=== PATIENT | female | born 1960 | race Caucasian/White ===

== ENCOUNTER 2023-04-16 10:56 | Outpatient (CLI) | payer BC, SELFPAY | END 2023-04-16 10:57 | disposition home or self-care (01) | LOC: KYNREF 10:59 | PROVIDERS: PCP Nurse Practitioner Family; Visit Provider Nurse Practitioner Family | DX: R30.0 Dysuria (principal) | CPT/HCPCS: 81015; 87086; 87186 ==

== ENCOUNTER 2024-01-04 12:23 | Outpatient (CLI) | payer BC, SELFPAY | END 2024-01-04 12:24 | disposition home or self-care (01) | PROVIDERS: PCP Nurse Practitioner Family; Visit Provider Nurse Practitioner Family | DX: N30.00 Acute cystitis without hematuria (principal) | CPT/HCPCS: 87086 ==

== ENCOUNTER 2024-02-11 10:22 | Outpatient (CLI) | payer BC, SELFPAY ==
--- NOTE | 2024-02-11 10:45 | CRLHL7_ITS ---
For Patients: As a result of the Century Cures Act, medical imaging exams and procedure reports are released immediately into your electronic medical record. You may view this report before your referring provider. If you have questions, please contact your health care provider. CLINICAL HISTORY: Pelvic pain TECHNIQUE: 2D hernández scale ultrasound. In addition color Doppler and spectral Doppler analysis was performed of the pelvis using a transabdominal and transvaginal approach. FINDINGS: The myometrium is heterogeneous. No defined fibroid. Uterus measures 6.2 x 3.9 x 4.9 cm. The endometrial lining measures 3.3 millimeters. The right ovary measures 2.1 x 1.2 x 1.4 cm in size and the left ovary measures 2.3 x 1.4 x 1.2 cm. The ovaries demonstrate normal arterial and venous blood flow on color Doppler and spectral Doppler analysis. There are no suspicious fluid collections within the cul-de-sac. IMPRESSION: Normal ovaries. No torsion, excess pelvic fluid or adnexal mass. No uterine fibroid. Dictated by Jerry Westbrook MD @ 02/11/2024 10:25:18 PM (Electronically Signed)
== END 2024-02-11 10:23 | disposition home or self-care (01) ==
PROVIDERS: PCP Nurse Practitioner Family; Visit Provider Nurse Practitioner Family
DX: R10.2 Pelvic and perineal pain (principal); Z80.41 Family history of malignant neoplasm of ovary; Z80.49 Family history of malignant neoplasm of other genital organs
CPT/HCPCS: 76830; 76856; 93976

== ENCOUNTER 2024-02-24 06:24 | Outpatient (CLI) | payer BC, SELFPAY ==
--- NOTE | 2024-02-24 08:25 | W.ANESCHARGE ---
Anesthesia Charges Start Date/Time Anesthesia Start Date: 02/24/24 Anesthesia Start Time: 07:25 Stop Date/Time Anesthesia Stop Date: 02/24/24 Anesthesia Stop Time: 08:22
--- NOTE | 2024-02-24 09:24 | W.ANESCHARGE ---
Anesthesia Charges Start Date/Time Anesthesia Start Date: 02/24/24 Anesthesia Start Time: 07:25 Stop Date/Time Anesthesia Stop Date: 02/24/24 Anesthesia Stop Time: 08:22
== END 2024-02-24 06:25 | disposition home or self-care (01) ==
LOC: OP CLINIC 06:24
PROVIDERS: PCP Nurse Practitioner Family; Visit Provider Surgery
DX: K44.9 Diaphragmatic hernia without obstruction or gangrene (principal); Z12.11 Encounter for screening for malignant neoplasm of colon
CPT/HCPCS: 00813; 43239; 45385; 88305; 88341; 88342; J2704; J3010

== ENCOUNTER 2024-03-03 09:19 | Outpatient (CLI) | payer BC, SELFPAY ==
--- OUTSIDE RECORDS SUMMARY | 2024-03-05 11:30 | XMS_ITS | Referral Summary ---
Author Organization [place] Address [address] [place] [address]. [place] [address] Care Team Providers Care Rail Detector Car Operator Name Role Phone Trudy Carrera NP Primary Care Provider Александр Hudson GC Unavailable [phone] Suzanne Kevin GC Unavailable Encounters Date Type [...] Description 08/12/2024 2:15 PM CDT Virtual Visit [facility] [address] [place] [address] Rosa Wilks MD [facility] [address] [place], [place] [phone] Suzanne Kevin GC [address] [place], [place] [phone] Insurance [facility] Care Teams Rail Detector Car Operator Relationship Specialty Start Date End Date Trudy Carrera NP [address] [address] PCP - General 12/07/22 Александр Hudson GC [address] [place] [address] Genetic Counselor Genetics, Clinical 03/15/23 Suzanne Kevin GC [address] [place] [address] Genetic Counselor Genetic Counselor, MS 02/21/24
--- OUTSIDE RECORDS SUMMARY | 2024-03-05 11:30 | XMS_ITS | Clinical Summary ---
Author Organization [place] Address [address] [place] [address]. [place] [address] Care Team Providers Care Vehicle Delivery Worker Name Role Phone Trudy Carrera NP Primary Care Provider Александр Hudson GC Unavailable [phone] Suzanne Kevin GC Unavailable Encounters Date Type [...] Description 08/12/2024 2:15 PM CDT Virtual Visit [facility] [address] [place] [address] [facility] [address] [place] [address] Suzanne Kevin GC [address] [place], [place] [phone] Health Maintenance Due Date Last Done Comments [...] patient's age to complete this topic Insurance [facility] Care Teams Vehicle Delivery Worker Relationship Specialty Start Date End Date Trudy Carrera NP [address] [address] PCP - General 12/07/22 Александр Hudson GC [address] [place] [address] Genetic Counselor Genetics, Clinical 03/15/23 Suzanne Kevin GC [address] [place] [address] Genetic Counselor Genetic Counselor, MS 02/21/24
--- OUTSIDE RECORDS SUMMARY | 2024-03-05 11:30 | XMS_ITS | Encounter Summary ---
Author Organization [place] Address [address] [place] [address]. [place] [address] Care Team Providers Care Recreation Therapy Aide Name Role Phone Trudy Carrera NP Primary Care Provider Александр Hudson GC Unavailable [phone] Suzanne Kevin GC Unavailable Encounter Details Date Type Department Care Team (Late Contact Info) Description 07/24/2023 MyC Medical Advice [facility] Care [address] [place] [address] [facility] Social History Tobacco Use Types Packs/Day Years [...] Upcoming Encounters Date Type Department Care Team ([facility] Contact Info) Description 08/12/2024 2:15 PM CDT Virtual Visit [facility] [address] [place] [address] [facility] [address] [place] [address] Suzanne Kevin GC [address] [place] [address] documented as of this encounter Visit Diagnoses Not on filedocumented in this encounter Care Teams Recreation Therapy Aide Relationship Specialty Start Date End Date Trudy Carrera NP [address] [address] PCP - General 12/07/22 Александр Hudson GC [address] [place] [address] Genetic Counselor Genetics, Clinical 03/15/23 Suzanne Kevin GC [address] [place] [address] Genetic Counselor Genetic Counselor, [place] 02/21/24 documented as of this encounter
--- OUTSIDE RECORDS SUMMARY | 2024-03-05 11:30 | XMS_ITS | Encounter Summary ---
Author Organization [place] Address [address] [place] [address]. [place] [address] Care Team Providers Care Anode Builder Name Role Phone Trudy Carrera NP Primary Care Provider HudsonАлександр GC Unavailable [phone] Dorita Suzanne GC Unavailable Reason for Referral * Consultation (Routine) - Pending Review Specialty Diagnoses / Procedures Referred By Soco ge Referred To Contact Medical Oncology Diagnoses Family history of malignant neoplasm of ovary Rosa Wilks MD [facility] [address] [place] [address] Phone: tel: fax: Referral ID Status Reason Start Date Expiration Date V isits Requested Visits Authorized [id number] Pending Review 02/21/2024 02/20/2025 1 1 Question Answer My Clinical Question Is: Family history of malignant neoplasm of ovary If you have additional clinical questions which require a provider discussion, please call [phone]. Ask for the Chemo only medicine physician. Reason for Referral: Risk Management/Genetic Counseling Scheduling Instructions: [facility] will call you to coordinate your care as prescribed by the provider. If you don? t hear from a advertising representative within 2 business days, please call Additional Information: clinic called, about pt wanted to rescheduled, previous referral in, referred by Rosa Wilks Comments clinic called, about pt wanted to rescheduled, Family history of malignant neoplasm of ovary previous referral in, referred by Rosa Wilks [facility] will call you to coordinate your care as prescribed by the provider. If you don? t hear from a advertising representative within 2 business days, please call [...] Upcoming Encounters Date Type Department Care Team ([facility] Contact Info) Description 08/12/2024 2:15 PM CDT Virtual Visit [facility] [address] [place] [address] Rosa Wilks MD [facility] [address] [place] [address] [place] [address] [place] [address] Scheduled Referrals Name Type Priority Associated Diagnoses Orde r Schedule Adult Oncology/Hematology Lobster Catcher Referral Referral Routine Family history of malignant neoplasm of ovary Expected: 02/21/2024 (Approximate), Expires: 02/20/2025 documented as of this encounter Visit Diagnoses Diagnosis Family history of malignant neoplasm of ovary- Primary documented in this encounter Care Teams Anode Builder Relationship Specialty Start Date End Date Trudy Carrera NP [address] [address] PCP - General 12/07/22 Александр Hudson GC [address] [facility] [place] [address] Genetic Counselor Genetics, Clinical 03/15/23 Suzanne Kevin GC [address] [facility] [place] [address] Genetic Counselor Genetic Counselor, [place] 02/21/24 documented as of this encounter
== END 2024-03-03 09:20 | disposition home or self-care (01) ==
LOC: NFLDREF 03-05 11:28
PROVIDERS: PCP Nurse Practitioner Family; Referring Provider Nurse Practitioner Family; Visit Provider Nurse Practitioner Family
DX: C20 Malignant neoplasm of rectum (principal)
CPT/HCPCS: 82378

== ENCOUNTER 2024-03-05 07:01 | Outpatient (CLI) | payer BC, SELFPAY ==
--- OUTSIDE RECORDS SUMMARY | 2024-03-05 07:03 | XMS_ITS | Encounter Summary ---
Author Organization [place] Address [address] [place] [address]. [place] [address] Care Team Providers Care Shoe Stamper Name Role Phone Trudy Carrera NP Primary Care Provider HudsonАлександр GC Unavailable [phone] Dorita Suzanne GC Unavailable Reason for Referral * Consultation (Routine) - Pending Review Specialty Diagnoses / Procedures Referred By Soco ge Referred To Contact Medical Oncology Diagnoses Family history of malignant neoplasm of ovary Rosa Wilks MD [facility] [address] [place] [address] Phone: tel: fax: Referral ID Status Reason Start Date Expiration Date V isits Requested Visits Authorized [id number] Pending Review 02/21/2024 02/20/2025 1 1 Question Answer My Clinical Question Is: Family history of malignant neoplasm of ovary If you have additional clinical questions which require a provider discussion, please call [phone]. Ask for the Chemo only medicine physician. Reason for Referral: Risk Management/Genetic Counseling Scheduling Instructions: [facility] will call you to coordinate your care as prescribed by the provider. If you don? t hear from a retail account representative within 2 business days, please call Additional Information: clinic called, about pt wanted to rescheduled, previous referral in, referred by Rosa Wilks Comments clinic called, about pt wanted to rescheduled, Family history of malignant neoplasm of ovary previous referral in, referred by Rosa Wilks [facility] will call you to coordinate your care as prescribed by the provider. If you don? t hear from a retail account representative within 2 business days, please call Encounter Details Date Type Department Care Team (Late st Contact Info) Description 02/21/2024 Transcribe Orders GENERIC EXTERNAL DATA DEPARTMENT Provider, Generic External Data Family history of malignant neoplasm of ovary (Primary Dx) Social History Tobacco Use Types Packs/Day Years Used Date Smoking Tobacco: Never Assessed Adolescent Education Answer Date Record ed Getting School Help Needed Not on file 02/02 Comments Unknown Sex and Gender Information Value Date Recorded Sex Assigned at Not on file Legal Sex Female 3:01 PM CDT Gender Identity Not on file Sexual Orientation Not on file documented as of this encounter Plan of Treatment Upcoming Encounters Date Type Department Care Team ([facility] Contact Info) Description 08/12/2024 2:15 PM CDT Virtual Visit [facility] [address] [place] [address] Rosa Wilks MD [facility] [address] [place] [address] [place] [address] [place] [address] Scheduled Referrals Name Type Priority Associated Diagnoses Orde r Schedule Adult Oncology/Hematology Public Policy Coordinator Referral Referral Routine Family history of malignant neoplasm of ovary Expected: 02/21/2024 (Approximate), Expires: 02/20/2025 documented as of this encounter Visit Diagnoses Diagnosis Family history of malignant neoplasm of ovary- Primary documented in this encounter Care Teams Shoe Stamper Relationship Specialty Start Date End Date Trudy Carrera NP [address] [address] PCP - General 12/07/22 Александр Hudson GC [address] [place] [address] Genetic Counselor Genetics, Clinical 03/15/23 Suzanne Kevin GC [address] [place] [address] Genetic Counselor Genetic Counselor, [place] 02/21/24 documented as of this encounter
--- OUTSIDE RECORDS SUMMARY | 2024-03-05 07:03 | XMS_ITS | Encounter Summary ---
Author Organization [place] Address [address] [place] [address]. [place] [address] Care Team Providers Care Stripper Shovel Operator Name Role Phone Trudy Carrera NP Primary Care Provider Александр Hudson GC Unavailable [phone] Suzanne Kevin GC Unavailable Encounter Details Date Type Department Care Team (Late Contact Info) Description 07/24/2023 MyC Medical Advice [facility] [address] [place] [address] [facility] Social History Tobacco Use Types Packs/Day Years [...] Upcoming Encounters Date Type Department Care Team ([facility] Contact Info) Description 08/12/2024 2:15 PM CDT Virtual Visit [facility] [address] [place] [address] Rosa Wilks [facility] [address] [place] [address] Suzanne Kevin GC [address] [place] [address] documented as of this encounter Visit Diagnoses Not on filedocumented in this encounter Care Teams Stripper Shovel Operator Relationship Specialty Start Date End Date Trudy Carrera NP [address] [address] PCP - General 12/07/22 Александр Hudson GC [address] [place] [address] Genetic Counselor Genetics, Clinical 03/15/23 Suzanne Kevin GC [address] [place] [address] Genetic Counselor Genetic Counselor, [place] 02/21/24 documented as of this encounter
--- OUTSIDE RECORDS SUMMARY | 2024-03-05 07:03 | XMS_ITS | Clinical Summary ---
Author Organization [facility] Address [address] [place] [address]. [place] [address] Care Team Providers Care Real Estate Accountant Name Role Phone Trudy Carrera NP Primary Care Provider Александр Hudson GC Unavailable [phone] Suzanne Kevin GC Unavailable Encounters Date Type Department Care Team Description 02/21/2024 Transcribe Orders GENERIC EXTERNAL DATA DEPARTMENT Provider, Generic External Data Family history of malignant neoplasm of ovary (Primary Dx) from Last 3 Months Social History Tobacco Use Types Packs/Day Years Used Date Smoking Tobacco: Never Assessed Adolescent Education Answer Date Record ed Getting School Help Needed Not on file 02/02 Comments Unknown Sex and Gender Information Value Date Recorded Sex Assigned at Not on file Legal Sex Female 3:01 PM CDT Gender Identity Not on file Sexual Orientation Not on file Plan of Treatment Upcoming Encounters Date Type Department Care Team (Late st Contact Info) Description 08/12/2024 2:15 PM CDT Virtual Visit [facility] [address] [place] [address] [facility] [address] [place] [address] Suzanne Kevin GC [address] [place], [place] [id number] Health Maintenance Due Date Last Done Comments ADVANCE CARE PLANNING 1962 ANNUAL REVIEW OF HM ORDERS 1962 CT COLONOGRAPHY 1962 FIT 1962 FLEX SIG 1962 GLUCOSE 1962 MAMMO SCREENING 1962 YEARLY PREVENTIVE VISIT 1962 sDNA (Cologuard) 1962 COLONOSCOPY 02/10/1972 COLORECTAL CANCER SCREENING 02/10/1972 HIV SCREENING 1977 HEPATITIS C SCREENING 02/10/1980 PAP 1983 LIPID 2002 PHQ-2 (once per calendar year) 2023 COVID-19 Vaccine (2023- season) 2024 03/25/2023, 05/10/2021, 09/22/2020, Additional history exists DTAP/TDAP/TD IMMUNIZATION (2 - Td or Tdap) 06/06/2030 06/06/2020, 03/27/2006 RSV VACCINE (1 - 1-dose 75+ series) 2037 ZOSTER IMMUNIZATION Completed 08/31/2021, INFLUENZA VACCINE Completed 02/18/2024, , 06/06/2020, Additional history exists HPV IMMUNIZATION Aged Out No longer e ligible based on patient's age to complete this topic MENINGITIS IMMUNIZATION Aged Out No l onger eligible based on patient's age to complete this topic Pneumococcal Vaccine: Pediatrics (0 to 5 Years) and At-Risk Patients (6 to 64 Years) Aged Out No longer eligible based on patient's age to complete this topic RSV MONOCLONAL ANTIBODY Aged Out No l onger eligible based on patient's age to complete this topic Insurance [facility] Care Teams Real Estate Accountant Relationship Specialty Start Date End Date Trduy Carrera NP [address] [address] PCP - General 12/07/22 Александр Hudson GC [address] [place] [address] Genetic Counselor Genetics, Clinical 03/15/23 Suzanne Kevin GC [address] [place] [address] Genetic Counselor Genetic Counselor, MS 02/21/24
--- OUTSIDE RECORDS SUMMARY | 2024-03-05 07:03 | XMS_ITS | Referral Summary ---
Author Organization [place] Address [address] [place] [address]. [place] [address] Care Team Providers Care Orthopedic Specialist Name Role Phone Trudy Carrera NP Primary Care Provider Александр Hudson GC Unavailable [phone] Suzanne Kevin GC Unavailable Encounters Date Type [...] Description 08/12/2024 2:15 PM CDT Virtual Visit [facility] [address] [place] [address] Rosa Wilks MD [facility] [address] [place], [place] [phone] Suzanne Kevin GC [address] [place], [place] [phone] Insurance [facility] Care Teams Orthopedic Specialist Relationship Specialty Start Date End Date Trudy Carrera NP [address] [address] PCP - General 12/07/22 Александр Hudson GC [address] [place] [address] Genetic Counselor Genetics, Clinical 03/15/23 Suzanne Kevin GC [address] [place] [address] Genetic Counselor Genetic Counselor, MS 02/21/24
--- NOTE | 2024-03-05 07:15 | CRLHL7_ITS ---
For Patients: As a result of the Century Cures Act, medical imaging exams and procedure reports are released immediately into your electronic medical record. You may view this report before your referring provider. If you have questions, please contact your health care provider. INDICATION: Rectal cancer reportedly from snared polyp approximately 8 centimeters from the anal verge COMPARISON: None. TECHNIQUE: Mulitplanar, mutliparametric MR imaging of the rectum without and with intravenous contrast. Contrast: 20 cc of Dotarem FINDINGS: Evaluation limited by presence of stool and motion artifact. 1. TUMOR LOCATION AND CHARACTERISTICS: Not identified 2. EXTRAMURAL DEPTH OF INVASION AND MR T-CATEGORY: Tumor not identified. No definite areas of extramural invasion identified. 3. RELATIONSHIP OF TUMOR TO MESORECTAL FASCIA (MRF): Tumor not identified. 4. EXTRAMURAL VENOUS INVASION (EMVI): None. 5. MESORECTAL LYMPH NODES AND TUMOUR DEPOSITS: -Suspicious mesorectal lymph nodes/tumor deposits: None 6. EXTRAMESORECTAL LYMPH NODES: None 7. OTHER FINDINGS: Sigmoid diverticulosis without diverticulitis. Heterogeneous appearance of the uterus with normal endometrial thickness. Subcentimeter intramural fibroids in the uterus. Note that the abdominal contents are largely excluded from the field of view. IMPRESSION: Due to poor prep and motion artifact, tumor was not identified. However, there are no areas of ramon extramural invasion within these limitations, though evaluation for more subtle extramural evaluation is limited. No suspicious mesorectal lymph nodes are identified. Dictated by Nguyen Holden MD @ 03/11/2024 9:18:57 AM (Electronically Signed)
--- NOTE | 2024-03-05 08:00 | CRLHL7_ITS ---
For Patients: As a result of the Century Cures Act, medical imaging exams and procedure reports are released immediately into your electronic medical record. You may view this report before your referring provider. If you have questions, please contact your health care provider. Indication: NEW DIAGNOSIS RECTAL CANCER Technique: CT Chest/Abd/Pelvis W/ 101CC ISOVUE 370 Please note that all CT scans at this facility use dose modulation, iterative reconstruction, and/or weight-based dosing when appropriate to reduce radiation dose to as low as reasonably achievable. Comparison: Pelvic ultrasound 02/11/2024, pelvic MRI 03/05/2024 Findings: In the chest, no suspicious thyroid nodule is present. No enlarged mediastinal, hilar or axillary lymph nodes. The lungs are clear. No infiltrate, edema, effusion or no pneumothorax. No pulmonary nodule. Emphysema noted. Mild scarring within the anterior right lung. Discogenic spurring lower thoracic spine. No fracture. In the abdomen, there is a simple water attenuation cyst within the liver measuring 8.9 millimeters. The spleen is within normal limits. Normal adrenal glands. The kidneys are unremarkable. 5 millimeter simple cyst right kidney. The pancreas is within normal limits. The gallbladder is incompletely distended. No biliary obstruction. Vascular calcifications are present. No aneurysm. There are a few scattered subcentimeter left upper quadrant mesenteric and upper retroperitoneal lymph nodes. In the pelvis, the bladder is normal. Uterus and adnexa unremarkable. Sigmoid diverticulosis. No diverticulitis. No bowel obstruction, free air, free fluid or abscess. The appendix is normal. No pelvic or inguinal adenopathy. Grade 1 degenerative spondylolisthesis of L4 on L5. Impression: A few scattered subcentimeter upper retroperitoneal and left upper quadrant mesenteric lymph nodes which are likely normal. No perirectal adenopathy. Sigmoid diverticulosis. No diverticulitis. No suspicious liver lesion. No pulmonary nodule. Please note that all CT scans at this facility use dose modulation, iterative reconstruction, and/or weight-based dosing when appropriate to reduce radiation dose to as low as reasonably achievable. Dictated by Jerry Westbrook MD @ 03/05/2024 10:12:54 AM (Electronically Signed)
[2024-03-05 08:39] LABS: Creatinine* 0.8 mg/dL (0.5-1.5); Estimated Glomerular Filt Rate 83 ml/min
== END 2024-03-05 07:02 | disposition home or self-care (01) ==
LOC: MRI 07:02
PROVIDERS: PCP Nurse Practitioner Family; Visit Provider Colon & Rectal Surgery
DX: C20 Malignant neoplasm of rectum (principal)
CPT/HCPCS: 36415; 71260; 72197; 74177; 82565; A9575; Q9967

== ENCOUNTER 2024-03-16 08:52 | Outpatient (CLI) | payer BC, SELFPAY ==
--- OUTSIDE RECORDS SUMMARY | 2024-03-16 09:02 | XMS_ITS | Clinical Summary ---
Author Organization [facility] Address [address] [place] [address]. [place] [address] Care Team Providers Care Crossing Tender Name Role Phone Trudy Carrera NP Primary Care Provider HudsonАлександр GC Unavailable [phone] Suzanne Kevin GC Unavailable Allergies Active Allergy Reactions Criticality Noted Date Comments Lanolin 11/26/2022 Lisinopril Cough High 11/26/2022 Medications losartan (COZAAR) 100 MG tablet 02/28/2024 Activ e Encounters Date Type Department Care Team Description 03/11/2024 9:00 AM CDT - 03/11/2024 9:[address] [facility] [address] [phone] Luann Pizarro MD flexible Sigmoidoscopy 03/11/2024 7:54 AM CDT - 03/11/2024 9:50 AM CDT Hospital Encounter [facility] [address] [phone] Luann Pizarro MD Discharge Disposition: Home or Self Care 02/21/2024 Transcribe Orders GENERIC EXTERNAL DATA DEPARTMENT Provider, Generic External Data Family history of malignant neoplasm of ovary (Primary Dx) from Last 3 Months Family History Medical History Relation Comments Lung Cancer Father Ovarian Cancer Mother Uterine Cancer Sister Relation Status Comments Father Mother Sister Social History Tobacco Use Types Packs/Day Years Used Date Smoking Tobacco: Former Cigarettes Smokeless Tobacco: Never Tobacco Cessation:Counseling Given: Not Answered Alcohol Use Standard Drinks/Week Comments Yes 0 (1 standard drink = 0.6 oz pur e alcohol) 4 servings per week Adolescent Education Answer Date Record ed Getting School Help Needed Not on file 02/02 Comments Unknown Sex and Gender Information Value Date Recorded Sex Assigned at Not on file Legal Sex Female 3:01 PM CDT Gender Identity Not on file Sexual Orientation Not on file Last Filed Vital Signs Vital Sign Reading Time Taken Comments Blood Pressure 122/61 03/11/2024 9:15 AM CDT Pulse 77 03/11/2024 9:15 AM CDT Temperature - - Respiratory Rate 16 03/11/2024 9:15 AM CDT Oxygen Saturation 96% 03/11/2024 9:15 AM CDT Inhaled Oxygen Concentration - - Weight 88 kg (194 lb) 03/11/2024 8:43 AM CDT Height 162.6 cm (5' 4) 03/11/2024 8:43 AM CDT Body Mass Index 33.3 03/11/2024 8:43 AM CDT Plan of Treatment Upcoming Encounters Date Type Department Care Team (Latest Contact Info) Description 04/01/2024 7:30 AM REBAR BENDER Hospital Encounter [facility] PeriOp Services [address] [place] [phone] Luann Pizarro MD COLON RECTAL SURGERY [address] [place] [address] 04/01/2024 7:30 AM REBAR BENDER - 04/01/2024 10:40 AM REBAR BENDER Surgery [facility] PeriOp Services [address] [place] [address] Luann Pizarro MD COLON RECTAL SURGERY [address] [address] Transanal endoscopic microsurgery for rectal cancer scar 08/12/2024 2:15 PM CDT Virtual Visit [facility] [address] [place] [phone] Rosa Wilks MD [facility] [address] [place] [address] Suzanne Kevin, GC [address] [place] [address] Scheduled Procedures Name Priority Associated Diagnoses Date/Ti me MICROSURGERY, ENDOSCOPIC, AN AL APPROACH Rectal cancer (H) 04/01/2024 7:30 AM REBAR BENDER Health Maintenance Due Date Last Done Comments ADVANCE CARE PLANNING 1960 ANNUAL REVIEW OF HM ORDERS 1960 CT COLONOGRAPHY 1962 FIT 1960 GLUCOSE 1960 MAMMO SCREENING 1960 YEARLY PREVENTIVE VISIT 1962 sDNA (Cologuard) 1962 COLONOSCOPY 02/10/1972 HIV SCREENING 1977 HEPATITIS C SCREENING 02/10/1980 PAP 1983 LIPID 2002 LUNG CANCER SCREENING 02/10/2012 PHQ-2 (once per calendar year) 2023 COVID-19 Vaccine ( season) 2024 03/25/2023, 05/10/2021, 09/22/2020, Additional history exists COLORECTAL CANCER SCREENING 03/11/2029 FLEX SIG 03/11/2029 03/11/2024 DTAP/TDAP/TD IMMUNIZATION (2 - Td or Tdap) [...] on patient's age to complete this topic Goals Goal Patient Goal Type Associated Problems Recent Progress Patient-Stated? Author MYC ECC SURG ENROLL Care Plan MyC ECC SURG ENROLL No Abbie Herrera Procedures Procedure Name Priority Date/Time Associated Diagnosis Comments SURGICAL PATHOLOGY EXAM Routine 03/11/2024 9:06 AM CDT FLEX SIGMOIDOSCOPY W INJ/TATTOOING 03/11/2024 8:53 AM CDT Rectal cancer (H) Special Needs Req 30 min FLEX SIGMOIDOSCOPY W BIOPSY 03/11/2024 8:53 AM CDT Rectal cancer (H) Special Needs Req 30 min FLEXIBLE SIGMOIDOSCOPY Routine 03/11/2024 8:51 AM CDT from Last 3 Months Results * Surgical Pathology Exam (03/11/2024 9:06 AM CDT) Case Report Surgical Pathology Report ? Case: [id number] ? Authorizing Provider: ??Luann Pizarro MD ?Collected: ? 03/11/2024 09:06 AM ? Ordering Location: ? [facility] ?Received: ?03/11/2024 10:29 AM ? [facility] ? Pathologist: ? Real Guevara MD ? Specimen: ?Rectum, rectal ulcer biopsies (previous polypectomy site) ? 03/13/2024 10:03 AM [facility] Addendum This addendum is included to report findings of additional immunohistochemical stains: -Immunohistochemical stains for cytokeratin AE1/AE3 demonstrate no atypical infiltrative epithelioid cells. -All controls stain appropriately. -There is no change in diagnosis 03/13/2024 10:03 AM [facility] Addendum electronically signed by Real Guevara MD on 03/13/2024 at 10:03 AM Final Diagnosis A(1). Colon, rectum, ulcerated region/previous polypectomy site, biopsies: -Colonic mucosa with submucosal scarring and acute and chronic inflammation. -Negative for dysplasia or malignancy. 03/13/2024 10:03 AM [facility] Clinical Information Procedure: flexible Sigmoidoscopy SIGMOIDOSCOPY, FLEXIBLE, WITH TATTOOING Pre-op Diagnosis: Rectal cancer (H) [C20] Post-op Diagnosis: C20 - Rectal cancer (H) [ICD-10-CM] 03/13/2024 10:03 AM [facility] Gross Description A(1). Rectum, rectal ulcer biopsies (previous polypectomy site): The specimen is received in formalin, labeled with the patient's name, medical record number and other identifying information and designated ? rectal ulcer biopsy? . It consists of a single muniz soft tissue fragment measuring 0.2 cm. Entirely submitted in one cassette. (SHUBHAM Gamboa)03/11/2024 10:36 AM 03/13/2024 10:03 AM [facility] Microscopic Description Microscopic examination was performed. 03/13/2024 10:03 AM [facility] Performing Labs The technical component of this testing was completed at [facility]. Stain controls for all stains resulted within this report have been reviewed and show appropriate reactivity. 03/13/2024 10:03 AM CDT LABORATORY Case Images 03/13/2024 10:03 AM CDT LABORATORY Biopsy RECTUM PART / Unknown 03/11/2024 9:06 AM CDT 03/11/2024 10:29 AM CDT us Luann Pizarro MD LAB - BEAKER AP Edited Res ult - Final LABORATORY [facility] [address] [facility]1st floor, no room number) [place] [address], [facility] [address] 1st floor, [address] [place] [address], [facility] [phone] * FLEXIBLE SIGMOIDOSCOPY (03/11/2024 8:51 AM CDT) [facility] [address] ??[address] Patient Name: Pastora Bacon ?Procedure Date: 03/11/2024 8:51 AM ? Date of : 1960 ?Admit Type: Outpatient Age: 64 ? Room: 1 ? Note Status: Finalized ?Attending MD: LUANN PIZARRO MD, Total Sedation Time: 10 minutes of continuous bedside 1:1. Instrument Name: Rekha PCF [id number] P Colon Flex Procedure: ?Flexible Sigmoidoscopy Indications: ?High risk colon cancer surveillance: Personal ?history of rectal cancer Providers: ?LUANN PIZARRO MD, Tammy Schulz RN Referring MD: ? Medicines: ?Fentanyl 100 micrograms IV, Midazolam 2 mg IV Complications: ?No immediate complications. Procedure: ?Pre-Anesthesia Assessment: ?- Prior to the procedure, a History and Physical ?was performed, and patient medications and ?allergies were reviewed. The patient is competent. ?The risks and benefits of the procedure and the ?sedation options and risks were discussed with the ?patient. All questions were answered and informed ?consent was obtained. Patient identification and ?proposed procedure were verified by the physician ?and the nurse in the endoscopy suite. Mental Status ?Examination: alert and oriented. Airway ?Examination: normal oropharyngeal airway and neck ?mobility. Respiratory Examination: clear to ?auscultation. CV Examination: normal. Prophylactic ?Antibiotics: The patient does not require ?prophylactic antibiotics. Prior Anticoagulants: The ?patient has taken no anticoagulant or antiplatelet ?agents. ASA Grade Assessment: II - A patient with ?mild systemic disease. After reviewing the risks ?and benefits, the patient was deemed in ?satisfactory condition to undergo the procedure. ?The anesthesia plan was to use moderate sedation / ?analgesia (conscious sedation). Immediately prior ?to administration of medications, the patient was ?re-assessed for adequacy to receive sedatives. The ?heart rate, respiratory rate, oxygen saturations, ?blood pressure, adequacy of pulmonary ventilation, ?and response to care were monitored throughout the ?procedure. The physical status of the patient was ?re-assessed after the procedure. ?After obtaining informed consent, the scope was ?passed under direct vision. The Colonoscope was ?introduced through the anus and advanced to 30 cm ?from the anal verge. The flexible sigmoidoscopy was ?accomplished with ease. The patient tolerated the ?procedure well. The quality of the bowel ?preparation was good. ? Findings: ? The perianal and digital rectal examinations were normal. Pertinent ? negatives include normal sphincter tone and no palpable rectal lesions. ? Nonbleeding ulcerated mucosa with no stigmata of recent bleeding were ? present in the mid rectum. Biopsies were taken with a cold forceps for ? histology. Estimated blood loss was minimal. Area was tattooed with an ? injection of 0.3 mL of Spot (carbon black). Estimated blood loss was ? minimal. ? The exam was otherwise without abnormality. ? Impression: ? - Mucosal ulceration likely piror polypectomy with ?cancer. This is at 8cm from then anal verge on the ?right lateral. Biopsied. Tattooed. ?- The examination was otherwise normal. Recommendation: ? - Await pathology results. Consider surgry to ?remove this area. ? Procedure Code(s): ? --- Professional --- ? 59351, Sigmoidoscopy, flexible; with biopsy, single or multiple ? 92594, Sigmoidoscopy, flexible; with directed submucosal injection(s), ? any substance Diagnosis Code(s): ? --- Professional --- ? Z85.048, Personal history of other malignant neoplasm of rectum, ? rectosigmoid junction, and anus ? K63.3, Ulcer of intestine CPT copyright 2021 [employer]. All rights reserved. The codes documented in this report are preliminary and upon rug setter axminster review may be revised to meet current compliance requirements. ____ LUANN PIZARRO MD 03/11/2024 9:17:27 AM I was physically present for the entire viewing portion of the exam. LUANN PIZARRO MD Number of Addenda: 0 Note Initiated On: 03/11/2024 8:51 AM Total Procedure Duration: 0 hours 8 minutes 20 seconds Scope In: 9:00:18 AM Scope Out: 9:08:38 AM RADIOLOGY RESULTS 03/11/2024 8:51 AM CDT us Luann Pizarro MD PROCEDURES Final Resu lt RADIOLOGY RESULTS from Last 3 Months Additional Health Concerns Active Problems Noted Date Diagnosed Date MyC ECC SURG ENROLL 03/12/2024 Insurance [facility] Care Teams Crossing Tender Relationship Specialty Start Date End Date Trudy Carrera NP [address] [address] PCP - General 12/07/22 Александр Hudson GC [address] [place] [address] Genetic Counselor Genetics, Clinical 03/15/23 Suzanne Kevin GC [address] [place] [address] Genetic Counselor Genetic Counselor, [place] 02/21/24
--- OUTSIDE RECORDS SUMMARY | 2024-03-16 09:02 | XMS_ITS | Referral Summary ---
Author Organization [facility] Address [address] [facility] [place] [address] Care Team Providers Care Radiologic Technologist Name Role Phone Trudy Carrera NP Primary Care Provider HudsonАлександр GC Unavailable [phone] Suzanne Kevin GC Unavailable Encounters Date Type Department Care Team Description 03/11/2024 9:00 AM CDT - 03/11/2024 9:30 AM CDT Surgery [facility] [address] [phone] Luann Pizarro MD flexible Sigmoidoscopy 03/11/2024 7:54 AM CDT - 03/11/2024 9:50 AM CDT Hospital Encounter [facility] [address] [phone] Luann Pizarro MD Discharge Disposition: Home or Self Care 02/21/2024 Transcribe Orders GENERIC EXTERNAL DATA DEPARTMENT Provider, Generic External Data Family history of malignant neoplasm of ovary (Primary Dx) from Last 3 Months Allergies Active Allergy Reactions Criticality Noted Date Comments Lanolin 11/26/2022 Lisinopril Cough High 11/26/2022 Medications losartan (COZAAR) 100 MG tablet 02/28/2024 Activ e Social History Tobacco Use Types Packs/Day Years [...] (Latest Contact Info) Description 04/01/2024 7:30 AM ROOFING APPRENTICE Hospital Encounter [facility] PeriOp Services [address] [place] [phone] Luann Pizarro MD COLON RECTAL SURGERY [address] [place] [address] 04/01/2024 7:30 AM ROOFING APPRENTICE - 04/01/2024 10:40 AM ROOFING APPRENTICE Surgery [facility] PeriOp Services [address] [place] [address] Luann Pizarro MD COLON RECTAL SURGERY [address] [address] Transanal endoscopic microsurgery for rectal cancer scar 08/12/2024 2:15 PM CDT Virtual Visit [facility] [address] [place] [address] Rosa Wilks MD [facility] [address] [place] [address] Suzanne Kevin, [address] [place] [address] Scheduled Procedures Name Priority Associated Diagnoses Date/Ti me MICROSURGERY, ENDOSCOPIC, AN AL APPROACH Rectal cancer (H) 04/01/2024 7:30 AM ROOFING APPRENTICE Goals Goal Patient Goal Type Associated Problems [...] Case Report Surgical Pathology Report ? Case: [id number] ? Authorizing Provider: ??Luann Pizarro MD ?Collected: ? 03/11/2024 09:06 AM ? [facility] ?Received: ?03/11/2024 10:29 AM ? [facility] ? Pathologist: ? Real Guevara MD ? Specimen: ?Rectum, rectal ulcer biopsies (previous polypectomy site) ? 03/13/2024 10:03 AM [facility] Addendum This addendum is included to report findings of additional immunohistochemical stains: -Immunohistochemical stains for cytokeratin AE1/AE3 demonstrate no atypical infiltrative epithelioid cells. -All controls stain appropriately. -There is no change in diagnosis 03/13/2024 10:03 AM [facility] Addendum electronically signed by Real Guevara MD on 03/13/2024 at 10:03 AM Final Diagnosis A(1). Colon, rectum, ulcerated region/previous polypectomy site, biopsies: -Colonic mucosa with submucosal scarring and acute and chronic inflammation. -Negative for dysplasia or malignancy. 03/13/2024 10:03 AM [facility] Clinical Information Procedure: flexible Sigmoidoscopy SIGMOIDOSCOPY, FLEXIBLE, WITH TATTOOING Pre-op Diagnosis: Rectal cancer (H) [C20] Post-op Diagnosis: C20 - Rectal cancer (H) [ICD-10-CM] 03/13/2024 10:03 AM [facility] Gross Description A(1). Rectum, rectal ulcer biopsies (previous polypectomy site): The specimen is received in formalin, labeled with the patient's name, medical record number and other identifying information and designated ? rectal ulcer biopsy? . It consists of a single muniz soft tissue fragment measuring 0.2 cm. Entirely submitted in one cassette. (SHUBHAM Gamboa)03/11/2024 10:36 AM 03/13/2024 10:03 AM CDT LABORATORY Microscopic Description Microscopic examination was performed. 03/13/2024 10:03 AM CDT LABORATORY Performing Labs The technical component of this testing was completed at [facility]. Stain controls for all stains resulted within this report have been reviewed and show appropriate reactivity. 03/13/2024 10:03 AM CDT LABORATORY Case Images 03/13/2024 10:03 AM CDT LABORATORY Biopsy RECTUM PART / Unknown 03/11/2024 9:06 AM CDT 03/11/2024 10:29 AM CDT us Luann Pizarro MD LAB - JOSHUA AP Edited Res ult - Final LABORATORY [facility] [address] [facility] Lab (1st floor, no room number) [place] [address], [facility] [address] 1st floor, [address] [place] [address], [facility] [phone] * FLEXIBLE SIGMOIDOSCOPY (03/11/2024 8:51 AM CDT) Flex Sig [facility] [address] ??[place] ??[address] Patient Name: Pastora Bacon ?Procedure Date: 03/11/2024 8:51 AM ? Date of : 1960 ?Admit Type: Outpatient Age: 64 ? Room: 1 ? Note Status: Finalized ?Attending MD: LUANN PIZARRO MD, Total Sedation Time: 10 minutes of continuous bedside 1:1. Instrument Name: 520 PC [id number] P Colon Flex Procedure: ?Flexible Sigmoidoscopy Indications: [...] Procedure Code(s): ? --- Professional --- ? 57204, Sigmoidoscopy, flexible; with biopsy, single or multiple ? 61620, Sigmoidoscopy, flexible; with directed submucosal injection(s), ? any substance Diagnosis Code(s): ? --- Professional --- ? Z85.048, Personal history of other malignant neoplasm of rectum, ? rectosigmoid junction, and anus ? K63.3, Ulcer of intestine CPT copyright 2021 [employer]. All rights reserved. The codes documented in this report are preliminary and upon security operations specialist review may be revised to meet current [...] Date MyC ECC SURG ENROLL 03/12/2024 Insurance [facility] Care Teams Radiologic Technologist Relationship Specialty Start Date End Date Trudy Carrera NP [address] [address] PCP - General 12/07/22 Александр Hudson GC [address] [place], [place] [phone] Genetic Counselor Genetics, Clinical 03/15/23 Suzanne Kevin GC [address] [place], [place] [phone] Genetic Counselor Genetic Counselor, [place] 02/21/24
--- OUTSIDE RECORDS SUMMARY | 2024-03-16 09:02 | XMS_ITS | Encounter Summary ---
Author Organization [place] Address [address] [facility] [place] [address] Care Team Providers Care Storage Center Manager Name Role Phone Trudy Carrera NP Primary Care Provider Hudson Александр M GC Unavailable [phone] DoritaSuzanne vázquez GC Unavailable Reason for Visit * Auth/Cert (Routine) Specialty Diagnoses / Procedures Referred By Soco ge Referred To Contact Gastroenterology Diagnoses Rectal cancer (H) Rectal cancer (H) [C20] Procedures GA FLEX SIGMOIDOSCOPY W/WO MAX SPEC BY BRUSH/WASH flexible Sigmoidoscopy [facility] [address] [address] Phone: tel: Referral ID Status Reason Start Date Expiration Date Visits Re quested Visits Authorized [id number] 1 1 Encounter Details Date Type Department Care Team (Latest Contact Info) Description 03/11/2024 7:54 AM CDT - 03/11/2024 9:50 AM CDT Hospital Encounter [facility] Endoscopy [address] [address] Luann Pizarro MD COLON RECTAL SURGERY [address] [place] [address] [address] [address] [id number] Discharge Disposition: Home or Self Care Social History Tobacco Use Types Packs/Day Years [...] on file documented as of this encounter Last Filed Vital Signs Vital Sign Reading [...] Mass Index 33.3 03/11/2024 8:43 AM CDT documented in this encounter Medications at Time of Discharge Medication Sig Dispense Quantity Refills Last Filled Start D ate End Date losartan (COZAAR) 100 MG tablet 02/28/2024 documented as of this encounter Plan of Treatment Upcoming Encounters Date Type Department Care Team (Latest Contact Info) Description 04/01/2024 7:30 AM SUPERINTENDENT COMMISSARY Hospital Encounter [facility] PeriOp Services [address] [place] [address] Luann Pizarro MD COLON RECTAL SURGERY [address] [place] [address] 04/01/2024 7:30 AM SUPERINTENDENT COMMISSARY - 04/01/2024 10:40 AM SUPERINTENDENT COMMISSARY Surgery [facility] PeriOp Services [address] [place] [address] Luann Pizarro MD COLON RECTAL SURGERY [address] [place] [address] Transanal endoscopic microsurgery for rectal cancer scar 08/12/2024 2:15 PM CDT Virtual Visit [facility] [address] [place] [address] Rosa Wilks MD [facility] [address] [place] [address] Suzanne Kevin, [address] [place] [address] Scheduled Procedures Name Priority Associated Diagnoses Date/Ti me MICROSURGERY, ENDOSCOPIC, AN AL APPROACH Rectal cancer (H) 04/01/2024 7:30 AM SUPERINTENDENT COMMISSARY documented as of this encounter Procedures Procedure Name Priority Date/Time Associated Diagnosis Comments SURGICAL PATHOLOGY EXAM Routine 03/11/2024 9:06 AM CDT FLEX SIGMOIDOSCOPY W INJ/TATTOOING 03/11/2024 8:53 AM CDT Rectal cancer (H) Special Needs Req 30 min FLEX SIGMOIDOSCOPY W BIOPSY 03/11/2024 8:53 AM CDT Rectal cancer (H) Special Needs Req 30 min FLEXIBLE SIGMOIDOSCOPY Routine 03/11/2024 8:51 AM CDT documented in this encounter Results * Surgical Pathology Exam (03/11/2024 9:06 AM CDT) Case Report Surgical Pathology Report ? Case: [id number] ? Authorizing Provider: ??Luann Pizarro MD ?Collected: ? 03/11/2024 09:06 AM ? Ordering Location: ? [facility] ?Received: ?03/11/2024 10:29 AM ? [facility] ? Pathologist: ? Real Guevara MD ? Specimen: ?Rectum, rectal ulcer biopsies (previous polypectomy site) ? 03/13/2024 10:03 AM [facility] Addendum This addendum is included to report findings of additional immunohistochemical stains: -Immunohistochemical stains for cytokeratin AE1/AE3 demonstrate no atypical infiltrative epithelioid cells. -All controls stain appropriately. -There is no change in diagnosis 03/13/2024 10:03 AM [facility] Addendum electronically signed by Real Guevara MD on 03/13/2024 at 10:03 AM Final Diagnosis A(1). Colon, rectum, ulcerated region/previous polypectomy site, biopsies: -Colonic mucosa with submucosal scarring and acute and chronic inflammation. -Negative for dysplasia or malignancy. 03/13/2024 10:03 AM [facility] Clinical Information Procedure: flexible Sigmoidoscopy SIGMOIDOSCOPY, FLEXIBLE, WITH TATTOOING Pre-op Diagnosis: Rectal cancer (H) [C20] Post-op Diagnosis: C20 - Rectal cancer (H) [ICD-10-CM] 03/13/2024 10:[address] [facility] Gross Description A(1). Rectum, [...] component of this testing was completed at [facility]. Stain controls for all stains resulted within this report have been reviewed and show appropriate reactivity. 03/13/2024 10:03 AM CDT LABORATORY Case Images 03/13/2024 10:03 AM CDT LABORATORY Biopsy RECTUM PART / Unknown 03/11/2024 9:06 AM CDT 03/11/2024 10:29 AM CDT us Luann Pizarro MD LAB - BEAKER AP Edited Res ult - Final LABORATORY [facility] [address] [facility] (1st floor, no room number) [place] [address], [facility] [address] 1st floor, [address] [place] [address], [facility] [phone] * FLEXIBLE SIGMOIDOSCOPY (03/11/2024 8:51 AM CDT) Flex Sig [facility] [address] [place] ??[address] Patient Name: Pastora Bacon ?Procedure Date: 03/11/2024 8:51 AM ? Date of : 1960 ?Admit Type: Outpatient Age: 64 ? Room: 1 ? Note Status: Finalized ?Attending MD: LUANN PIZARRO MD, Total Sedation Time: 10 minutes of continuous bedside 1:1. Instrument Name: 520 PCF [id number] P Colon Flex Procedure: ?Flexible Sigmoidoscopy Indications: ?High risk colon cancer surveillance: Personal ?history of rectal cancer Providers: ?LUANN PIZARRO MD, Tammy Schulz RN Referring : ? Medicines: ?Fentanyl 100 micrograms IV, Midazolam [...] Procedure Code(s): ? --- Professional --- ? 50706, Sigmoidoscopy, flexible; with biopsy, single or multiple ? 16064, Sigmoidoscopy, flexible; with directed submucosal injection(s), ? any substance Diagnosis Code(s): ? --- Professional --- ? Z85.048, Personal history of other malignant neoplasm of rectum, ? rectosigmoid junction, and anus ? K63.3, Ulcer of intestine CPT copyright 2021 [employer]. All rights reserved. The codes documented in this report are preliminary and upon data coder operator review may be revised to meet current [...] AM RADIOLOGY RESULTS 03/11/2024 8:51 AM CDT Luann Pizarro MD PROCEDURES Final Resu lt RADIOLOGY RESULTS documented in this encounter Visit Diagnoses Not on filedocumented in this encounter Administered Medications Inactive Administered Medications - up to 3 most recent administrations Medication Order MAR Action Action Date Dose Rate Site fentaNYL (PF) (SUBLIMAZE) injection Intravenous, PRN, Administer over 3-5 Minutes, Starting on Sat03/11/24 at 0857, Intra-procedure $Given 03/11/2024 8:57 AM CDT 100 mcg midazolam (VERSED) injection Intravenous, Administer over 2 Minutes, PRN, Starting on Sat03/11/24 at 0858, Intra-procedure $Given 03/11/2024 8:58 AM CDT 2 mg documented in this encounter Active and Recently Administered Medications Times are shown in CDT. PRN Medication Order 03/09/2024 03/10/2024 03/11/2024 fentaNYL (PF) (SUBLIMAZE) injection Intravenous, PRN, Administer over 3-5 Minutes, Starting on Sat03/11/24 at 0857, Intra-procedure 0857 ($Given - Provi huong: Tammy Schulz, CHITO) midazolam (VERSED) injection Intravenous, Administer over 2 Minutes, PRN, Starting on Sat03/11/24 at 0858, Intra-procedure 0858 ($Given - Provi huong: Tammy Schulz, CHITO) documented in this encounter Care Teams Storage Center Manager Relationship Specialty Start Date End Date Trudy Carrera NP [address] [address] PCP - General 12/07/22 Александр Hudson GC [address] [place] [address] Genetic Counselor Genetics, Clinical 03/15/23 Suzanne Kevin GC [address] [place] [address] Genetic Counselor Genetic Counselor, [place] 02/21/24 documented as of this encounter
--- OUTSIDE RECORDS SUMMARY | 2024-03-16 09:02 | XMS_ITS | Encounter Summary ---
Author Organization [place] Address [address] [place] [address]. [place] [address] Care Team Providers Care Cell Coverer Name Role Phone Trudy Carrera NP Primary Care Provider Александр Hudson GC Unavailable [phone] DoritaSuzanne GC Unavailable Encounter Details Date Type Department Care Team (Late st Contact Info) Description 07/24/2023 [facility] Medical Advice [facility] [address] [place] [address] [facility] Social History Tobacco Use Types Packs/Day Years [...] (Latest Contact Info) Description 04/01/2024 7:30 AM COUPON CLERK Hospital Encounter [facility] PeriOp Services [address] [place] [address] Cristine Pizarro MD COLON RECTAL SURGERY [address] [address] 04/01/2024 7:30 AM COUPON CLERK - 04/01/2024 10:40 AM COUPON CLERK Surgery [facility] PeriOp Services [address] [place] [address] Cristine Pizarro MD COLON RECTAL SURGERY [address] [facility] [address] [address] Transanal endoscopic microsurgery for rectal cancer scar 08/12/2024 2:15 PM CDT Virtual Visit [facility] [address] [place] [address] Rosa Wilks MD [facility] [address] [place] [address] Suzanne Kevin GC [address] [place], [place] [id number] Scheduled Procedures Name Priority Associated Diagnoses Date/Ti mi MICROSURGERY, ENDOSCOPIC, AN AL APPROACH Rectal cancer (H) 04/01/2024 7:30 AM COUPON CLERK documented as of this encounter Visit Diagnoses Not on filedocumented in this encounter Care Teams Cell Coverer Relationship Specialty Start Date End Date Trudy Carrera NP [facility] [address] [place] [address] PCP - General 12/07/22 Александр Hudson GC [address] [place] [address] Genetic Counselor Genetics, Clinical 03/15/23 Suzanne Kevin GC [address] [place], [place] [phone] Genetic Counselor Genetic Counselor, [place] 02/21/24 documented as of this encounter
--- OUTSIDE RECORDS SUMMARY | 2024-03-16 09:02 | XMS_ITS | Encounter Summary ---
Author Organization [place] Address [address] [facility] [address] Care Team Providers Care Baseball Club Manager Name Role Phone Trudy Carrera NP Primary Care Provider HudsonАлександр GC Unavailable [phone] DoritaSuzanne vázquez GC Unavailable Reason for Visit * Auth/Cert (Routine) Specialty Diagnoses / Procedures Referred By Soco ge Referred To Contact Gastroenterology Diagnoses Rectal cancer (H) Rectal cancer (H) [C20] Procedures CT FLEX SIGMOIDOSCOPY W/WO MAX SPEC BY BRUSH/WASH flexible Sigmoidoscopy [facility] [address] [address] Phone: tel: Referral ID Status Reason Start Date Expiration Date Visits Re quested Visits Authorized [id number] 1 1 Encounter Details Date Type Department Care Team (Late st Contact Info) Description 03/11/2024 9:00 AM CDT - 03/11/2024 9:30 AM CDT Surgery [facility] [address] [address] Luann Pizarro MD COLON RECTAL SURGERY [address] [place] [address] [address] [id number] flexible Sigmoidoscopy Surgery Details Date/Time Status Location OR Service Patient Class Case Cl ass Case Type Trauma Case? 03/11/2024 9:00 AM Posted GI GI 02 [place] Outpatient Elective Panel 1 Procedure [facility] Anes Op Region Wound Class Comments flexible Sigmoidoscopy N/A Moderate Sedation Rectum II-Clean Contaminated SIGMOIDOSCOPY, FLEXIBLE, WITH TATTOOING N/A Anus II-Clean Contaminated Surgeon Surgeon Role Service Panel Luann Pizarro MD Primary [place]-[facility]al 1 Special Needs Req 30 min documented in this encounter Social History Tobacco Use Types Packs/Day Years [...] (Latest Contact Info) Description 04/01/2024 7:30 AM BEAUTY CULTURE TEACHER Hospital Encounter [facility] PeriOp Services [address] [facility] [place] [address] Luann Pizarro MD COLON RECTAL SURGERY [address] [place] [address] 04/01/2024 7:30 AM BEAUTY CULTURE TEACHER - 04/01/2024 10:40 AM BEAUTY CULTURE TEACHER Surgery [facility] PeriOp Services [address] [place] [address] Luann Pizarro MD [facility]ERY [address] [facility] [address] [place] [address] Transanal endoscopic microsurgery for rectal cancer scar 08/12/2024 2:15 PM CDT Virtual Visit [facility] [address] [place] [address] Rosa Wilks MD [address] [address] Suzanne Kevin, [address] [place] [address] Scheduled Procedures Name Priority Associated Diagnoses Date/Ti me MICROSURGERY, ENDOSCOPIC, AN AL APPROACH Rectal cancer (H) 04/01/2024 7:30 AM BEAUTY CULTURE TEACHER documented as of this encounter Procedures Procedure [...] Case Report Surgical Pathology Report ? Case: [id number] ? Authorizing Provider: ??Luann Pizarro MD ?Collected: ? 03/11/2024 09:06 AM ? Ordering Location: ? [facility] ?Received: ?03/11/2024 10:29 AM ? [facility] ? Pathologist: ? Real Guevara MD ? Specimen: ?Rectum, rectal ulcer biopsies (previous polypectomy site) ? 03/13/2024 10:03 AM [facility] Addendum This addendum is included to report findings of additional immunohistochemical stains: -Immunohistochemical stains for cytokeratin AE1/AE3 demonstrate no atypical infiltrative epithelioid cells. -All controls stain appropriately. -There is no change in diagnosis 03/13/2024 10:03 AM T LABORATORY Addendum electronically signed by Real Guevara MD on 03/13/2024 at 10:03 AM Final Diagnosis A(1). Colon, rectum, ulcerated region/previous polypectomy site, biopsies: -Colonic mucosa with submucosal scarring and acute and chronic inflammation. -Negative for dysplasia or malignancy. 03/13/2024 10:03 AM [facility] Clinical Information Procedure: flexible Sigmoidoscopy SIGMOIDOSCOPY, FLEXIBLE, WITH TATTOOING Pre-op Diagnosis: Rectal cancer (H) [C20] Post-op Diagnosis: C20 - Rectal cancer (H) [ICD-10-CM] 03/13/2024 10:03 AM CDT LABORATORY Gross Description A(1). Rectum, rectal ulcer [...] component of this testing was completed at [facility]. Stain controls for all stains resulted within this report have been reviewed and show appropriate reactivity. 03/13/2024 10:03 AM CDT LABORATORY Case Images 03/13/2024 10:03 AM CDT LABORATORY Biopsy RECTUM PART / Unknown 03/11/2024 9:06 AM CDT 03/11/2024 10:29 AM CDT us Luann Pizarro MD LAB - JOSHUA AP Edited Res ult - Final LABORATORY [facility] [address] [facility] Lab (1st floor, no room number) [place] [address], [facility] [address] 1st floor, Room [address] [place] [address], [place] [phone] * FLEXIBLE SIGMOIDOSCOPY (03/11/2024 8:51 AM CDT) Flex Sig [facility] [address] [address] ??[address] Patient Name: Pastora Bacon ?Procedure Date: 03/11/2024 8:51 AM ? Date of : 1960 ?Admit Type: Outpatient Age: 64 ? Room: 1 ? Note Status: Finalized ?Attending MD: LUANN PIZARRO MD, Total Sedation Time: 10 minutes of continuous bedside 1:1. Instrument Name: 520 F [id number] P Colon Flex Procedure: ?Flexible Sigmoidoscopy Indications: [...] Procedure Code(s): ? --- Professional --- ? 95151, Sigmoidoscopy, flexible; with biopsy, single or multiple ? 39961, Sigmoidoscopy, flexible; with directed submucosal injection(s), ? any substance Diagnosis Code(s): ? --- Professional --- ? Z85.048, Personal history of other malignant neoplasm of rectum, ? rectosigmoid junction, and anus ? K63.3, Ulcer of intestine CPT copyright 2021 [employer]. All rights reserved. The codes documented in this report are preliminary and upon entry level assistant manager review may be revised to meet current [...] RESULTS documented in this encounter Visit Diagnoses Diagnosis Rectal cancer (H) Malignant neoplasm of rectum Rectal cancer (H) Malignant neoplasm of rectum documented in this encounter Administered Medications Inactive Administered [...] 0857 ($Given - Provi huong: Tammy Schulz, RN) midazolam (VERSED) injection Intravenous, Administer over 2 Minutes, PRN, Starting on Sat03/11/24 at 0858, Intra-procedure 0858 ($Given - Provi huong: Tammy Schulz RN) documented in this encounter Care Teams Baseball Club Manager Relationship Specialty Start Date End Date Trudy Carrera NP [address] [address] PCP - General 12/07/22 Александр Hudson GC [address] [place], [place] [phone] Genetic Counselor Genetics, Clinical 03/15/23 Suzanne Kevin GC [address] [place] [address] Genetic Counselor Genetic Counselor, [place] 02/21/24 documented as of this encounter
--- OUTSIDE RECORDS SUMMARY | 2024-03-16 09:02 | XMS_ITS | Encounter Summary ---
Author Organization [place] Address [address] [place] [address]. [place] [address] Care Team Providers Care Client Services Analyst Name Role Phone Trudy Carrera NP Primary Care Provider [phone] HudsonАлександр GC Unavailable [phone] Dorita Suzanne GC Unavailable Reason for Referral * Consultation (Routine) - Pending Review Specialty Diagnoses / Procedures Referred By Soco ge Referred To Contact Medical Oncology Diagnoses Family history of malignant neoplasm of ovary Rosa Wilks MD [facility] [address] [place] [address] Phone: tel: fax: Referral ID Status Reason Start Date Expiration Date V isits Requested Visits Authorized [id number] Pending Review 02/21/2024 02/20/2025 1 1 Question Answer My Clinical Question Is: Family history of malignant neoplasm of ovary If you have additional clinical questions which require a provider discussion, please call [phone]. Ask for the Chemo only medicine physician. Reason for Referral: Risk Management/Genetic Counseling Scheduling Instructions: [facility] will call you to coordinate your care as prescribed by the provider. If you don? t hear from a employee relations representative within 2 business days, please call Additional Information: clinic called, about pt wanted to rescheduled, previous referral in, referred by Rosa Wilks Comments clinic called, about pt wanted to rescheduled, Family history of malignant neoplasm of ovary previous referral in, referred by Rosa Wilks [facility] will call you to coordinate your care as prescribed by the provider. If you don? t hear from a employee relations representative within 2 business days, please call [...] (Latest Contact Info) Description 04/01/2024 7:30 AM TITLE INSURANCE AGENT Hospital Encounter [facility] PeriOp Services [address] [place] [address] Cristine Pizarro MD COLON RECTAL SURGERY [address] [facility] [address] [place] [address] 04/01/2024 7:30 AM TITLE INSURANCE AGENT - 04/01/2024 10:40 AM TITLE INSURANCE AGENT Surgery [facility] PeriOp Services [address] [place] [address] Cristine Pizarro MD COLON RECTAL SURGERY [address] [facility] [address] [place] [address] Transanal endoscopic microsurgery for rectal cancer scar 08/12/2024 2:15 PM CDT Virtual Visit [facility] [address] [place] [address] Rosa Wilks MD [address] [address] Suzanne Kevin GC [address] [place] [address] Scheduled Procedures Name Priority Associated Diagnoses Date/Ti me MICROSURGERY, ENDOSCOPIC, AN AL APPROACH Rectal cancer (H) 04/01/2024 7:30 AM TITLE INSURANCE AGENT Scheduled Referrals Name Type Priority Associated Diagnoses Orde r Schedule Adult Oncology/Hematology Product Support Representative Referral Referral Routine Family history of malignant neoplasm of ovary Expected: 02/21/2024 (Approximate), Expires: 02/20/2025 documented as of this encounter Visit Diagnoses Diagnosis Family history of malignant neoplasm of ovary- Primary Rectal cancer (H) Malignant neoplasm of rectum documented in this encounter Care Teams Client Services Analyst Relationship Specialty Start Date End Date Trudy Carrera NP [address] [address] PCP - General 12/07/22 Александр Hudson GC [address] [place] [address] Genetic Counselor Genetics, Clinical 03/15/23 Suzanne Kevin GC [address] [place] [address] Genetic Counselor Genetic Counselor, [place] 02/21/24 documented as of this encounter
--- NOTE | 2024-03-16 09:15 | CRLHL7_ITS ---
For Patients: As a result of the Century Cures Act, medical imaging exams and procedure reports are released immediately into your electronic medical record. You may view this report before your referring provider. If you have questions, please contact your health care provider. BILATERAL SCREENING MAMMOGRAM WITH COMPUTER-AIDED DETECTION AND TOMOSYNTHESIS TECHNIQUE: CC and MLO views were obtained. These mammographic images have been obtained using full-field digital technique. These mammographic images were interpreted with the benefit of computer-aided detection. Breast Tomosynthesis was used in this interpretation. COMPARISON FILM: 08/31/21. FINDINGS: There are scattered areas of fibroglandular density. IMPRESSION: There is no radiographic evidence for malignancy. ASSESSMENT: BI-RADS Category 2: Benign RECOMMENDATION: Routine screening mammogram in 1 year. A lay language report of this examination will be provided to the patient. Ash Guerin M.D. Diagnostic/Nuclear Medicine Radiologist [email or web address] SP/Dictated by: Ash Guerin MD @ 03/18/2024 10:44:00 AM (Electronically Signed)
== END 2024-03-16 08:53 | disposition home or self-care (01) ==
LOC: MAMMO 08:55
PROVIDERS: PCP Nurse Practitioner Family; Visit Provider Nurse Practitioner Family
DX: Z12.31 Encounter for screening mammogram for malignant neoplasm of breast (principal)
CPT/HCPCS: 77063; 77067

== ENCOUNTER 2024-03-24 12:59 | Outpatient (CLI) | payer BC, SELFPAY ==
--- OUTSIDE RECORDS SUMMARY | 2024-03-24 13:02 | XMS_ITS | Referral Summary ---
Author Organization [place] Address [address] [facility] [place] [address] Care Team Providers Care Retort Load Expediter Name Role Phone Trudy Carrera NP Primary Care Provider HudsonАлександр GC Unavailable [phone] Suzanne Kevin GC Unavailable Encounters Date Type Department Care Team Description 03/11/2024 9:00 AM CDT - 03/11/2024 9:30 AM CDT Surgery [facility]oscopy [address] [address] Luann Pizarro MD flexible Sigmoidoscopy 03/11/2024 7:54 AM CDT - 03/11/2024 9:50 AM CDT Hospital Encounter [facility]oscopy [address] [address] Luann Pizarro MD Discharge Disposition: Home or [...] (Latest Contact Info) Description 04/01/2024 7:30 AM SINGLE NEEDLE OPERATOR Hospital Encounter [facility]Op [facility] [address] [place] [address] Luann Pizarro MD COLON RECTAL SURGERY [address] [place] [address] 04/01/2024 7:30 AM SINGLE NEEDLE OPERATOR - 04/01/2024 10:40 AM SINGLE NEEDLE OPERATOR Surgery [facility] [address] [place] [address] Luann Pizarro MD COLON RECTAL SURGERY [address] [address] Transanal endoscopic microsurgery for rectal cancer scar 08/12/2024 2:15 PM CDT Virtual Visit [facility] [address] [place] [address] Rosa Wilks MD [facility] [address] [place] [address] Suzanne Kevin, [address] [place] [address] Scheduled Procedures Name Priority Associated Diagnoses Date/Ti me MICROSURGERY, ENDOSCOPIC, AN AL APPROACH Rectal cancer (H) 04/01/2024 7:30 AM SINGLE NEEDLE OPERATOR Goals Goal Patient Goal Type Associated Problems [...] Case Report Surgical Pathology Report ? Case: [id number] ? Authorizing Provider: ??Luann Pizarro MD ?Collected: ? 03/11/2024 09:06 AM ? [facility] ?Received: ?03/11/2024 10:29 AM ? [facility] ? Pathologist: ? Real Guevara MD ? Specimen: ?Rectum, rectal ulcer biopsies (previous polypectomy site) ? 03/13/2024 10:03 AM [facility] Addendum This addendum is included to report findings of additional immunohistochemical stains: -Immunohistochemical stains for cytokeratin AE1/AE3 demonstrate no atypical infiltrative epithelioid cells. -All controls stain appropriately. -There is no change in diagnosis 03/13/2024 10:03 AM [facility] Addendum electronically signed by Real Guevara MD on 03/13/2024 at 10:03 AM Final Diagnosis A(1). Colon, rectum, ulcerated region/previous polypectomy site, biopsies: -Colonic mucosa with submucosal scarring and acute and chronic inflammation. -Negative for dysplasia or malignancy. 03/13/2024 10:03 AM [facility] Clinical Information Procedure: flexible Sigmoidoscopy SIGMOIDOSCOPY, FLEXIBLE, WITH TATTOOING Pre-op Diagnosis: Rectal cancer (H) [C20] Post-op Diagnosis: C20 - Rectal cancer (H) [ICD-10-CM] 03/13/2024 10:03 AM [facility] Gross Description A(1). Rectum, rectal [...] component of this testing was completed at [facility]. Stain controls for all stains resulted within this report have been reviewed and show appropriate reactivity. 03/13/2024 10:03 AM CDT LABORATORY Case Images 03/13/2024 10:03 AM CDT LABORATORY Biopsy RECTUM PART / Unknown 03/11/2024 9:06 AM CDT 03/11/2024 10:29 AM CDT us Luann Pizarro MD LAB - JOSHUA AP Edited Res ult - Final LABORATORY [facility] [address] [facility] (1st floor, no room number) [place] [address], [facility] [address] 1st floor, [address] [place] [address], [facility] [phone] * FLEXIBLE SIGMOIDOSCOPY (03/11/2024 8:51 AM CDT) Flex Sig [facility] [address] ??[place] ??[address] Patient Name: Pastora Bacon ?Procedure Date: 03/11/2024 8:51 AM ? Date of : 1960 ?Admit Type: Outpatient Age: 64 ? Room: 1 ? Note Status: Finalized ?Attending MD: LUANN PIZARRO MD, Total Sedation Time: 10 minutes of continuous bedside 1:1. Instrument Name: 520 PC [id number] P Colon Flex Procedure: ?Flexible Sigmoidoscopy Indications: [...] Procedure Code(s): ? --- Professional --- ? 83775, Sigmoidoscopy, flexible; with biopsy, single or multiple ? 90545, Sigmoidoscopy, flexible; with directed submucosal injection(s), ? any substance Diagnosis Code(s): ? --- Professional --- ? Z85.048, Personal history of other malignant neoplasm of rectum, ? rectosigmoid junction, and anus ? K63.3, Ulcer of intestine CPT copyright 2021 [employer]. All rights reserved. The codes documented in this report are preliminary and upon hall supervisor review may be revised to meet current [...] Date MyC ECC SURG ENROLL 03/12/2024 Insurance [facility] Care Teams Retort Load Expediter Relationship Specialty Start Date End Date Trudy Carrera NP [address] [address] PCP - General 12/07/22 Александр Hudson GC [address] [place], [place] [phone] Genetic Counselor Genetics, Clinical 03/15/23 Suzanne Kevin GC [address] [place], [place] [phone] Genetic Counselor Genetic Counselor, [place] 02/21/24
--- OUTSIDE RECORDS SUMMARY | 2024-03-24 13:02 | XMS_ITS | Clinical Summary ---
Author Organization [place] Address [address] [place] [address]. [place] [address] Care Team Providers Care Floor Director Name Role Phone Trudy Carrera NP Primary Care Provider HudsonАлександр GC Unavailable [phone] Suzanne Kevin GC Unavailable Allergies Active Allergy Reactions Criticality Noted Date Comments Lanolin 11/26/2022 Lisinopril Cough High 11/26/2022 Medications losartan (COZAAR) 100 MG tablet 02/28/2024 Activ e Encounters Date Type Department Care Team Description 03/11/2024 9:00 AM CDT - 03/11/2024 9:30 AM CDT Surgery [facility] Endoscopy [address] [phone] Luann Pizarro MD flexible Sigmoidoscopy 03/11/2024 7:54 AM CDT - 03/11/2024 9:50 AM CDT Hospital Encounter [facility] [address] [address] Luann Pizarro MD Discharge Disposition: Home or [...] (Latest Contact Info) Description 04/01/2024 7:30 AM TOLL SERVICE OBSERVER Hospital Encounter [facility] [address] [place] [address] Luann Pizarro MD COLON RECTAL SURGERY [address] [place] [address] 04/01/2024 7:30 AM TOLL SERVICE OBSERVER - 04/01/2024 10:40 AM TOLL SERVICE OBSERVER Surgery [facility] [address] [place] [address] Luann Pizarro MD COLON RECTAL SURGERY [address] [address] Transanal endoscopic microsurgery for rectal cancer scar 08/12/2024 2:15 PM CDT Virtual Visit [facility] [address] [place] [phone] Rosa Wilks MD [facility] [address] [place] [address] Suzanne Kevin, GC [address] [place] [address] Scheduled Procedures Name Priority Associated Diagnoses Date/Ti me MICROSURGERY, ENDOSCOPIC, AN AL APPROACH Rectal cancer (H) 04/01/2024 7:30 AM TOLL SERVICE OBSERVER Health Maintenance Due Date Last Done Comments [...] Case Report Surgical Pathology Report ? Case: [id number] ? Authorizing Provider: ??Luann Pizarro MD ?Collected: ? 03/11/2024 09:06 AM ? Ordering Location: ? [facility] ?Received: ?03/11/2024 10:29 AM ? [facility] ? Pathologist: ? Real Guevara MD ? Specimen: ?Rectum, rectal ulcer biopsies (previous polypectomy site) ? 03/13/2024 10:03 AM [facility] Addendum This addendum is included to report findings of additional immunohistochemical stains: -Immunohistochemical stains for cytokeratin AE1/AE3 demonstrate no atypical infiltrative epithelioid cells. -All controls stain appropriately. -There is no change in diagnosis 03/13/2024 10:03 AM [facility] Addendum electronically signed by Real Guevara MD on 03/13/2024 at 10:03 AM Final Diagnosis A(1). Colon, rectum, ulcerated region/previous polypectomy site, biopsies: -Colonic mucosa with submucosal scarring and acute and chronic inflammation. -Negative for dysplasia or malignancy. 03/13/2024 10:03 AM [facility] Clinical Information Procedure: flexible Sigmoidoscopy SIGMOIDOSCOPY, FLEXIBLE, WITH TATTOOING Pre-op Diagnosis: Rectal cancer (H) [C20] Post-op Diagnosis: C20 - Rectal cancer (H) [ICD-10-CM] 03/13/2024 10:03 AM [facility] Gross Description A(1). Rectum, rectal ulcer biopsies (previous polypectomy site): The specimen is received in formalin, labeled with the patient's name, medical record number and other identifying information and designated ? rectal ulcer biopsy? . It consists of a single muniz soft tissue fragment measuring 0.2 cm. Entirely submitted in one cassette. (SHUBHAM Gamboa)03/11/2024 10:36 AM 03/13/2024 10:03 AM [facility] Microscopic Description Microscopic examination was performed. 03/13/2024 10:03 AM [facility] Performing Labs The technical component of this testing was completed at [facility]. Stain controls for all stains resulted within this report have been reviewed and show appropriate reactivity. 03/13/2024 10:03 AM CDT LABORATORY Case Images 03/13/2024 10:03 AM CDT LABORATORY Biopsy RECTUM PART / Unknown 03/11/2024 9:06 AM CDT 03/11/2024 10:29 AM CDT us Luann Pizarro MD LAB - BEAKER AP Edited Res ult - Final LABORATORY [facility] [address] [facility] (1st floor, no room number) [place] [address], [facility] [address] 1st floor, Room 20[address] [place] [address], [facility] [phone] * FLEXIBLE SIGMOIDOSCOPY (03/11/2024 8:51 AM CDT) [facility] [address] [place] ??[address] Patient Name: Pastora Bacon ?Procedure Date: 03/11/2024 8:51 AM ? Date of : 1960 ?Admit Type: Outpatient Age: 64 ? Room: 1 ? Note Status: Finalized ?Attending MD: LUANN PIZARRO MD, Total Sedation Time: 10 minutes of continuous bedside 1:1. Instrument Name: Rekha PCF [id number] P Colon Flex Procedure: ?Flexible Sigmoidoscopy Indications: [...] Procedure Code(s): ? --- Professional --- ? 03877, Sigmoidoscopy, flexible; with biopsy, single or multiple ? 35485, Sigmoidoscopy, flexible; with directed submucosal injection(s), ? any substance Diagnosis Code(s): ? --- Professional --- ? Z85.048, Personal history of other malignant neoplasm of rectum, ? rectosigmoid junction, and anus ? K63.3, Ulcer of intestine CPT copyright 2021 [employer]. All rights reserved. The codes documented in this report are preliminary and upon medical biller coder review may be revised to meet current [...] Date MyC ECC SURG ENROLL 03/12/2024 Insurance [facility] Care Teams Floor Director Relationship Specialty Start Date End Date Trudy Carrera NP [address] [address] PCP - General 12/07/22 Александр Hudson GC [address] [place] [address] Genetic Counselor Genetics, Clinical 03/15/23 Suzanne Kevin GC [address] [place] [address] Genetic Counselor Genetic Counselor, [place] 02/21/24
--- OUTSIDE RECORDS SUMMARY | 2024-03-24 13:03 | XMS_ITS | Encounter Summary ---
Author Organization [place] Address [address] [facility] [place] [address] Care Team Providers Care Sign Painter Name Role Phone Trudy Carrera NP Primary Care Provider [phone] HudsonАлександр GC Unavailable [phone] DoritaSuzanne vázquez GC Unavailable Reason for Visit * Auth/Cert (Routine) Specialty Diagnoses / Procedures Referred By Soco ge Referred To Contact Gastroenterology Diagnoses Rectal cancer (H) Rectal cancer (H) [C20] Procedures [place] FLEX SIGMOIDOSCOPY W/WO MAX SPEC BY BRUSH/WASH flexible Sigmoidoscopy [facility] [address] [address] Phone: tel: Referral ID Status Reason Start Date Expiration Date Visits Re quested Visits Authorized [id number] 1 1 Encounter Details Date Type Department Care Team (Late st Contact Info) Description 03/11/2024 9:00 AM CDT - 03/11/2024 9:30 AM CDT Surgery [facility] [address] [address] Luann Pizarro MD COLON RECTAL SURGERY [address] [place] [address] [address] [id number] flexible Sigmoidoscopy Surgery Details Date/Time Status Location OR Service Patient Class Case Cl ass Case Type Trauma Case? 03/11/2024 9:00 AM Posted GI GI 02 [place] [facility] Outpatient Elective Panel 1 Procedure LRB Anes Op Region Wound Class Comments flexible Sigmoidoscopy N/A Moderate Sedation Rectum II-Clean Contaminated SIGMOIDOSCOPY, FLEXIBLE, WITH TATTOOING N/A Anus II-Clean Contaminated Surgeon Surgeon Role Service Panel Luann Pizarro MD Primary [place]-Rectal 1 Special Needs Req 30 min documented [...] (Latest Contact Info) Description 04/01/2024 7:30 AM ADMITTING MANAGER Hospital Encounter [facility] [address] [facility] [address] Luann Pizarro MD COLON RECTAL SURGERY [address] [address] 04/01/2024 7:30 AM ADMITTING MANAGER - 04/01/2024 10:40 AM ADMITTING MANAGER Surgery [facility]Op [facility] [address] [place] [phone] Luann Pizarro MD [facility] SURGERY [address] [facility] [address] [place] [address] Transanal endoscopic microsurgery for rectal cancer scar 08/12/2024 2:15 PM CDT Virtual Visit [facility] [address] [place] [address] Rosa Wilks MD [address] [address] Suzanne Kevin, [address] [place] [address] Scheduled Procedures Name Priority Associated Diagnoses Date/Ti me MICROSURGERY, ENDOSCOPIC, AN AL APPROACH Rectal cancer (H) 04/01/2024 7:30 AM ADMITTING MANAGER documented as of this encounter Procedures Procedure [...] Case Report Surgical Pathology Report ? Case: [id number] ? Authorizing Provider: ??Luann Pizarro MD ?Collected: ? 03/11/2024 09:06 AM ? Ordering Location: ? [facility] ?Received: ?03/11/2024 10:29 AM ? [facility] ? Pathologist: ? Real Guevara MD ? Specimen: ?Rectum, rectal ulcer biopsies (previous polypectomy site) ? 03/13/2024 10:03 AM [facility] Addendum This addendum is included to [...] for dysplasia or malignancy. 03/13/2024 10:03 AM [facility] Clinical Information Procedure: flexible Sigmoidoscopy SIGMOIDOSCOPY, [...] component of this testing was completed at [facility]. Stain controls for all stains resulted within this report have been reviewed and show appropriate reactivity. 03/13/2024 10:03 AM CDT LABORATORY Case Images 03/13/2024 10:03 AM CDT LABORATORY Biopsy RECTUM PART / Unknown 03/11/2024 9:06 AM CDT 03/11/2024 10:29 AM CDT us Luann Pizarro MD LAB - JOSHUA AP Edited Res ult - Final LABORATORY [facility] [address] [facility] Lab (1st floor, no room number) [place] [address], [facility] [address] 1st floor, Room [address] [place] [address], [place] [phone] * FLEXIBLE SIGMOIDOSCOPY (03/11/2024 8:51 AM CDT) Flex Sig [facility] [address] ??[address] Patient Name: Pastora Bacon ?Procedure Date: 03/11/2024 8:51 AM ? Date of : 1960 ?Admit Type: Outpatient Age: 64 ? Room: 1 ? Note Status: Finalized ?Attending MD: LUANN PIZARRO MD, Total Sedation Time: 10 minutes of continuous bedside 1:1. Instrument Name: 520 F [id number] P Colon Flex Procedure: ?Flexible Sigmoidoscopy Indications: [...] Procedure Code(s): ? --- Professional --- ? 24562, Sigmoidoscopy, flexible; with biopsy, single or multiple ? 28737, Sigmoidoscopy, flexible; with directed submucosal injection(s), ? any substance Diagnosis Code(s): ? --- Professional --- ? Z85.048, Personal history of other malignant neoplasm of rectum, ? rectosigmoid junction, and anus ? K63.3, Ulcer of intestine CPT copyright 2021 [employer]. All rights reserved. The codes documented in this report are preliminary and upon mechanical design engineer facilities review may be revised to meet current [...] RN) documented in this encounter Care Teams Sign Painter Relationship Specialty Start Date End Date Trudy Carrera NP [address] [address] PCP - General 12/07/22 Александр Hudson GC [address] [place], [place] [phone] Genetic Counselor Genetics, Clinical 03/15/23 Suzanne Kevin GC [address] [place] [address] Genetic Counselor Genetic Counselor, [place] 02/21/24 documented as of this encounter
--- OUTSIDE RECORDS SUMMARY | 2024-03-24 13:03 | XMS_ITS | Encounter Summary ---
Author Organization [place] Address [address] [facility] [place] [address] Care Team Providers Care Embedded Developer Name Role Phone Trudy Carrera NP Primary Care Provider Hudson Александр M GC Unavailable [phone] DoritaSuzanne vázquez GC Unavailable Reason for Visit * Auth/Cert (Routine) Specialty Diagnoses / Procedures Referred By Soco ge Referred To Contact Gastroenterology Diagnoses Rectal cancer (H) Rectal cancer (H) [C20] Procedures [place] FLEX SIGMOIDOSCOPY W/WO MAX SPEC BY BRUSH/WASH flexible Sigmoidoscopy [facility] [address] [address] Phone: tel: Referral ID Status Reason Start Date Expiration Date Visits Re quested Visits Authorized [id number] 1 1 Encounter Details Date Type Department Care Team (Latest Contact Info) Description 03/11/2024 7:54 AM CDT - 03/11/2024 9:50 AM CDT Hospital Encounter [facility] [address] [address] Luann Pizarro MD COLON RECTAL SURGERY [address] [place] [address] [address] [id number] Discharge Disposition: Home or Self Care Social [...] (Latest Contact Info) Description 04/01/2024 7:30 AM CONCRETE MASON Hospital Encounter [facility] PeriOp Services [address] [place] [address] Luann Pizarro MD COLON RECTAL SURGERY [address] [address] 04/01/2024 7:30 AM CONCRETE MASON - 04/01/2024 10:40 AM CONCRETE [place]ON Surgery [facility]iOp Services [address] [place] [address] Luann Pizarro MD COLON RECTAL SURGERY [address] [address] Transanal endoscopic microsurgery for rectal cancer scar 08/12/2024 2:15 PM CDT Virtual Visit [facility] [address] [place] [address] Rosa Wilks MD [facility] [address] [place] [address] Suzanne Kevin, [address] [place] [address] Scheduled Procedures Name Priority Associated Diagnoses Date/Ti me MICROSURGERY, ENDOSCOPIC, AN AL APPROACH Rectal cancer (H) 04/01/2024 7:30 AM CONCRETE MASON documented as of this encounter Procedures Procedure [...] Case Report Surgical Pathology Report ? Case: [id number] ? Authorizing Provider: ??Luann Pizarro MD ?Collected: ? 03/11/2024 09:06 AM ? Ordering Location: ? [facility] ?Received: ?03/11/2024 10:29 AM ? [facility] ? Pathologist: ? Real Guevara MD ? Specimen: ?Rectum, rectal ulcer biopsies (previous polypectomy site) ? 03/13/2024 10:03 AM [facility] Addendum This addendum is included to report findings of additional immunohistochemical stains: -Immunohistochemical stains for cytokeratin AE1/AE3 demonstrate no atypical infiltrative epithelioid cells. -All controls stain appropriately. -There is no change in diagnosis 03/13/2024 10:03 AM [facility] Addendum electronically signed by Real Guevara MD on 03/13/2024 at 10:03 AM Final Diagnosis A(1). Colon, rectum, ulcerated region/previous polypectomy site, biopsies: -Colonic mucosa with submucosal scarring and acute and chronic inflammation. -Negative for dysplasia or malignancy. 03/13/2024 10:03 AM [facility] Clinical Information Procedure: flexible Sigmoidoscopy [...] component of this testing was completed at [facility]. Stain controls for all stains resulted within this report have been reviewed and show appropriate reactivity. 03/13/2024 10:03 AM CDT LABORATORY Case Images 03/13/2024 10:03 AM CDT LABORATORY Biopsy RECTUM PART / Unknown 03/11/2024 9:06 AM CDT 03/11/2024 10:29 AM CDT us Luann Pizarro MD LAB - BEAKER AP Edited Res ult - Final LABORATORY [facility] [address] [facility] (1st floor, no room number) [place] [address], [facility] [address] 1st floor, Room [address] [place] [address], [facility] [phone] * FLEXIBLE SIGMOIDOSCOPY (03/11/2024 8:51 AM CDT) Flex Sig [facility] [address] ??[place] ??[address] Patient Name: Pastora Bacon ?Procedure Date: 03/11/2024 8:51 AM ? Date of : 1960 ?Admit Type: Outpatient Age: 64 ? Room: 1 ? Note Status: Finalized ?Attending MD: LUANN PIZARRO MD, Total Sedation Time: 10 minutes of continuous bedside 1:1. Instrument Name: 520 PCF [id number] P Colon Flex Procedure: ?Flexible Sigmoidoscopy Indications: [...] Procedure Code(s): ? --- Professional --- ? 09298, Sigmoidoscopy, flexible; with biopsy, single or multiple ? 50707, Sigmoidoscopy, flexible; with directed submucosal injection(s), ? any substance Diagnosis Code(s): ? --- Professional --- ? Z85.048, Personal history of other malignant neoplasm of rectum, ? rectosigmoid junction, and anus ? K63.3, Ulcer of intestine CPT copyright 2021 [employer]. All rights reserved. The codes documented in this report are preliminary and upon orthopedic coder review may be revised to meet [...] CHITO) documented in this encounter Care Teams Embedded Developer Relationship Specialty Start Date End Date Trudy Carrera NP [address] [address] PCP - General 12/07/22 Александр Hudson GC [address] [place] [address] Genetic Counselor Genetics, Clinical 03/15/23 Suzanne Kevin GC [address] [place] [address] Genetic Counselor Genetic Counselor, [place] 02/21/24 documented as of this encounter
--- OUTSIDE RECORDS SUMMARY | 2024-03-24 13:03 | XMS_ITS | Encounter Summary ---
Author Organization [facility] Address [address] [place] [address]. [place] [address] Care Team Providers Care Cashier Assistant Name Role Phone Trudy Carrera NP Primary Care Provider HudsonАлександр GC Unavailable [phone] Dorita Suzanne GC Unavailable Reason for Referral * Consultation (Routine) - Pending Review Specialty Diagnoses / Procedures Referred By Soco ge Referred To Contact Medical Oncology Diagnoses Family history of malignant neoplasm of ovary Rosa Wilks MD [facility] [address] [place] [address] Phone: tel: fax: Referral ID Status Reason Start Date Expiration Date V isits Requested Visits Authorized [id number] Pending Review 02/21/2024 02/20/2025 1 1 Question Answer My Clinical Question Is: Family history of malignant neoplasm of ovary If you have additional clinical questions which require a provider discussion, please call [phone]. Ask for the Chemo only medicine physician. Reason for Referral: Risk Management/Genetic Counseling Scheduling Instructions: [facility] will call you to coordinate your care as prescribed by the provider. If you don? t hear from a sales representative advertising within 2 business days, please call Additional Information: clinic called, about pt wanted to rescheduled, previous referral in, referred by Rosa Wilks Comments clinic called, about pt wanted to rescheduled, Family history of malignant neoplasm of ovary previous referral in, referred by Rosa Wilks [facility] will call you to coordinate your care as prescribed by the provider. If you don? t hear from a sales representative advertising within 2 business days, please call Encounter [...] (Latest Contact Info) Description 04/01/2024 7:30 AM PENCIL SORTER Hospital Encounter [facility] [address] [place] [address] Cristine Pizarro MD [facility]ON RECTAL SURGERY [address] [facility] [address] [place] [address] 04/01/2024 7:30 AM PENCIL SORTER - 04/01/2024 10:40 AM PENCIL SORTER Surgery [facility] [address] [place] [address] Cristine Pizarro MD COLON RECTAL SURGERY [address] [facility] [address] [place] [address] Transanal endoscopic microsurgery for rectal cancer scar 08/12/2024 2:15 PM CDT Virtual Visit [facility] [address] [place] [address] Rosa Wilks MD [address] [address] Suzanne Kevin GC [address] [place] [address] Scheduled Procedures Name Priority Associated Diagnoses Date/Ti me MICROSURGERY, ENDOSCOPIC, AN AL APPROACH Rectal cancer (H) 04/01/2024 7:30 AM PENCIL SORTER Scheduled Referrals Name Type Priority Associated Diagnoses Orde r Schedule Adult Oncology/Hematology Epic Interface Analyst Referral Referral Routine Family history of malignant neoplasm of ovary Expected: 02/21/2024 (Approximate), Expires: 02/20/2025 documented as of this encounter Visit Diagnoses Diagnosis Family history of malignant neoplasm of ovary- Primary Rectal cancer (H) Malignant neoplasm of rectum documented in this encounter Care Teams Cashier Assistant Relationship Specialty Start Date End Date Trudy Carrera NP [address] [address] PCP - General 12/07/22 Александр Hudson GC [address] [place] [address] Genetic Counselor Genetics, Clinical 03/15/23 Suzanne Kevin GC [address] [place] [address] Genetic Counselor Genetic Counselor, [place] 02/21/24 documented as of this encounter
--- OUTSIDE RECORDS SUMMARY | 2024-03-24 13:03 | XMS_ITS | Encounter Summary ---
Author Organization [facility] Address [address] [place] [address]. [place] [address] Care Team Providers Care Diversified Crops Ii Farmworker Name Role Phone Trudy Carrera NP Primary Care Provider Александр Hudson GC Unavailable [phone] DoritaSuzanne GC Unavailable Encounter Details Date Type Department Care Team (Late st Contact Info) Description 07/24/2023 [facility] Medical Advice [facility] Care [address] [place] [address] [facility] Social History Tobacco Use Types Packs/Day Years [...] (Latest Contact Info) Description 04/01/2024 7:30 AM GAS ENGINE REPAIRER Hospital Encounter [facility] [address] [place] [address] Cristine Pizarro MD COLON RECTAL SURGERY [address] [address] 04/01/2024 7:30 AM GAS ENGINE REPAIRER - 04/01/2024 10:40 AM GAS ENGINE REPAIRER Surgery [facility] [address] [place] [address] Cristine Pizarro MD COLON RECTAL SURGERY [address] [facility] [address] [id number] Transanal endoscopic microsurgery for rectal cancer scar 08/12/2024 2:15 PM CDT Virtual Visit [facility] [address] [place] [address] Rosa Wilks MD [facility] [address] [place] [address] Suzanne Kevin GC [address] [place], [place] [id number] Scheduled Procedures Name Priority Associated Diagnoses Date/Ti md MICROSURGERY, ENDOSCOPIC, AN AL APPROACH Rectal cancer (H) 04/01/2024 7:30 AM GAS ENGINE REPAIRER documented as of this encounter Visit Diagnoses Not on filedocumented in this encounter Care Teams Diversified Crops Ii Farmworker Relationship Specialty Start Date End Date Trudy Carrera NP [facility] [address] [place] [address] PCP - General 12/07/22 Александр Hudson GC [address] [place] [address] Genetic Counselor Genetics, Clinical 03/15/23 Suzanne Kevin GC [address] [place], [place] [id number] Genetic Counselor Genetic Counselor, [place] 02/21/24 documented as of this encounter
== END 2024-03-24 13:00 | disposition home or self-care (01) ==
PROVIDERS: PCP Nurse Practitioner Family; Visit Provider Nurse Practitioner Family
DX: Z01.818 Encounter for other preprocedural examination (principal); I10 Essential (primary) hypertension
CPT/HCPCS: 80048; 85025

== ENCOUNTER 2024-04-29 09:11 | Outpatient (RCR) | payer BC, SELFPAY | END 2024-10-26 23:59 | disposition home or self-care (01) | LOC: CCIC 09:11 | PROVIDERS: PCP Nurse Practitioner Family; Visit Provider Internal Medicine Hematology & Oncology | DX: K62.1 Rectal polyp (principal) | CPT/HCPCS: 99202; 99204; 99205 ==

== ENCOUNTER 2024-06-30 08:03 | Outpatient (CLI) | payer BC, SELFPAY ==
--- NOTE | 2024-06-30 08:15 | CRLHL7_ITS ---
For Patients: As a result of the Cures Act, medical imaging exams and procedure reports are released immediately into your electronic medical record. You may view this report before your referring provider. If you have questions, please contact your health care provider. INDICATION: Rectal cancer. COMPARISON: Rectal MRI dated 05 March 2024. TECHNIQUE: Rectal MRI with T1, T2, and postcontrast images. Intravenous gadolinium administered. Findings : No rectal mass identified. No mesorectal adenopathy. No pelvic sidewall adenopathy. Colonic diverticulosis. No other bony or soft tissue abnormalities identified. Impression : 1. No rectal mass identified. 2. No mesorectal adenopathy. Dictated by Prem Moser MD @ 06/30/2024 12:34:10 PM (Electronically Signed)
== END 2024-06-30 08:04 | disposition home or self-care (01) ==
LOC: MRI 08:03
PROVIDERS: PCP Nurse Practitioner Family; Visit Provider Colon & Rectal Surgery
DX: C20 Malignant neoplasm of rectum (principal); K57.30 Diverticulosis of large intestine without perforation or abscess without bleeding
CPT/HCPCS: 72197; A9575